=== PATIENT | female | born 1980 | race Caucasian/White ===

== ENCOUNTER 2017-06-07 11:49 | Emergency (ER) | payer SELFPAY ==
[~2017-06-07] VITALS: Ht 154.9 cm; Wt 58.3 kg
[2017-06-07 12:46] LABS: ADD MIUA? YES; BILIRUBIN NEGATIVE; BLOOD SMALL; COLOR YELLOW ((YELLOW)); GLUCOSE (STRIP) NEGATIVE; KETONES NEGATIVE; LEUKOCYTES NEGATIVE; NITRITE NEGATIVE; PROTEIN (STRIP) NEGATIVE; SPECIFIC GRAVITY 1.017 (1.000-1.030); UROBILINOGEN 0.2 MG/DL (0.2-1.0)
[2017-06-07 12:54] LABS: MCH 33.8 PG (29.0-34.0); MCV 93.9 FL (83-99); PLATELET COUNT 202 K/uL (156-360); RBC DIS.WIDTH-SD 44.3 % (39-53); RED BLOOD COUNT 4.58 M/uL (3.80-5.20); WHITE BLOOD COUNT 10.5 K/uL (4.1-10.2)
[2017-06-07 13:04] LABS: CHLORIDE 100 mEq/L (99-109); POTASSIUM 4.3 mEq/L (3.7-5.4); SODIUM 136 mEq/L (136-147)
[2017-06-07 13:06] LABS: GLUCOSE 105 mg/dL (70-99)
[2017-06-07 13:07] LABS: ANION GAP 13 MEQ/L (2-14)
[2017-06-07 13:08] LABS: TOTAL BILIRUBIN 0.5 mg/dL (0.0-1.0)
[2017-06-07 13:09] LABS: ALKALINE PHOSPHATASE 81 IU/L (3-129)
[2017-06-07 13:11] LABS: GFR ESTIMATE (CALCULATED) > 59 mL/min/; UREA NITROGEN (BUN) 16 mg/dL (9-23)
[2017-06-07 13:13] LABS: LIPASE 856 U/L (1.0-51.0)
[2017-06-07 13:18] LABS: BACTERIA NONE SEEN /HPF; EPITHELIAL CELLS RARE /HPF; HYALINE CASTS 0-5 /LPF; MUCUS TRACE /LPF; RED BLOOD CELLS 0-5 /HPF (0-5); UCUL ADDED? NO; WHITE BLOOD CELLS 0-5 /HPF (0-5)
[2017-06-07 13:19] LABS: QUANTITATIVE HCG < 4.0 MIU/ML
[2017-06-07] MEDS ORDERED: PHENERGAN25 MG PR (17:03)
[2017-06-07] MEDS ORDERED: ZOFRAN ODT4 MG PO (17:03)
[2017-06-07] MEDS ORDERED: HYDROCODON-ACE1 EAC7 PO (17:03)
[2017-06-07 17:19] VITALS: BP 127/88
== END 2017-06-07 17:21 | disposition home or self-care (01) ==
LOC: EME 11:49
DX: K85.90 Acute pancreatitis without necrosis or infection, unspecified (principal); N83.202 Unspecified ovarian cyst, left side; F17.200 Nicotine dependence, unspecified, uncomplicated; Z88.0 Allergy status to penicillin
CPT/HCPCS: 74177; 80053; 81003; 83690; 84702; 85027; 99281; 99285; J2405; J3010; J7030